=== PATIENT | female | born 1990 | race Two or more races ===

== ENCOUNTER 2016-12-22 21:54 | Emergency (ER) | payer MEDICAID ==
[~2016-12-22] VITALS: Ht 157.5 cm; Wt 64.4 kg
[~2016-12-22 21:54] MED LIST: IBUP200C8 PO
[2016-12-22] MEDS ORDERED: LORazepam 0.5MG TABLET ONE (22:44)
[2016-12-22] MEDS ORDERED: LORazepam 1MG TABLET PO ONE (23:00)
[2016-12-23 00:38] VITALS: BP 114/77
== END 2016-12-23 00:39 | disposition home or self-care (01) ==
LOC: ED 23:03
DX: J20.8 Acute bronchitis due to other specified organisms (principal); B96.89 Other specified bacterial agents as the cause of diseases classified elsewhere
CPT/HCPCS: 71020; 93005; 93970; 99284

== ENCOUNTER 2017-07-22 20:21 | Emergency (ER) | payer SELFPAY ==
[~2017-07-22] VITALS: Ht 157.5 cm; Wt 62.9 kg
[2017-07-22 20:25] VITALS: BP 113/73
[2017-07-22 21:31] LABS: BASOPHILS # (AUTO) 0.02 x10^3/uL (0-0.1); BASOPHILS % (AUTO) 0 % (0-1); EOSINOPHILS # (AUTO) 0.05 x10^3/uL (0-0.4); EOSINOPHILS % (AUTO) 1 % (1-7); LYMPHOCYTES # (AUTO) 2.06 x10^3/uL (1-3.4); LYMPHOCYTES % (AUTO) 33 % (22-44); MD NO; MEAN CORPUSCULAR HEMOGLOBIN 30.5 pg (27.0-34.8); MEAN CORPUSCULAR HGB CONC 33.7 g/dL (32.4-35.8); MEAN CORPUSCULAR VOLUME 90.6 fL (80-100); MEAN PLATELET VOLUME 8.6 fL (7.4-10.4); MONOCYTES # (AUTO) 0.38 x10^3/uL (0.2-0.8); MONOCYTES % (AUTO) 6 % (2-9); NEUTROPHILS # (AUTO) 3.83 x10^3/uL (1.8-6.8); NEUTROPHILS % (AUTO) 60 % (42-75); PLATELET COUNT 229 x10^3/uL (130-400); RED BLOOD COUNT 3.99 x10^6/uL (3.82-5.3); RED CELL DISTRIBUTION WIDTH 13.1 % (9.6-15.2)
[2017-07-22 21:37] LABS: ALANINE AMINOTRANSFERASE 22 U/L (12-78); ALBUMIN 3.5 g/dL (3.4-5.0); ANION GAP 9 mmol/L (5-15); CALCIUM 8.6 mg/dL (8.5-10.1); CHLORIDE 107 mmol/L (98-107); CREATININE 0.72 mg/dL (0.55-1.02)
[2017-07-22 21:39] LABS: ALKALINE PHOSPHATASE 59 U/L (45-117); BILIRUBIN,TOTAL 0.2 mg/dL (0.2-1.0); TOTAL PROTEIN 6.9 g/dL (6.4-8.2)
[2017-07-22 21:40] LABS: HCG UR SG 1.027 (1.003-1.030); MICROSCOPIC NOT IND
[2017-07-22 21:44] LABS: CULTURE INDICATED? NO
== END 2017-07-22 22:22 | disposition home or self-care (01) ==
LOC: ED 20:47
DX: R10.84 Generalized abdominal pain (principal)
CPT/HCPCS: 36415; 80053; 81003; 81025; 83690; 85025; 99284

== ENCOUNTER 2018-01-09 17:24 | Emergency (ER) | payer SELFPAY ==
[~2018-01-09] VITALS: Ht 157.5 cm; Wt 60.3 kg
[2018-01-09 17:30] VITALS: BP 147/69
[2018-01-09] MEDS ORDERED: ONDANSETRON ODT 4 MG ONE (17:42)
[2018-01-09 17:53] LABS: BASOPHILS # (AUTO) 0.01 x10^3/uL (0-0.1); BASOPHILS % (AUTO) 0 % (0-1); EOSINOPHILS # (AUTO) 0.03 x10^3/uL (0-0.4); EOSINOPHILS % (AUTO) 0 % (1-7); LYMPHOCYTES # (AUTO) 1.47 x10^3/uL (1-3.4); LYMPHOCYTES % (AUTO) 15 % (22-44); MD NO; MEAN CORPUSCULAR HEMOGLOBIN 31.1 pg (27.0-34.8); MEAN CORPUSCULAR HGB CONC 34.1 g/dL (32.4-35.8); MEAN CORPUSCULAR VOLUME 91.1 fL (80-100); MEAN PLATELET VOLUME 8.5 fL (7.4-10.4); MONOCYTES # (AUTO) 0.55 x10^3/uL (0.2-0.8); MONOCYTES % (AUTO) 6 % (2-9); NEUTROPHILS # (AUTO) 7.74 x10^3/uL (1.8-6.8); NEUTROPHILS % (AUTO) 79 % (42-75); PLATELET COUNT 263 x10^3/uL (130-400); RED BLOOD COUNT 4.78 x10^6/uL (3.82-5.3); RED CELL DISTRIBUTION WIDTH 13.7 % (9.6-15.2)
[2018-01-09] MEDS ORDERED: ONDANSETRON ODT 4 MG PO ONE (18:00)
[2018-01-09 18:02] LABS: ALANINE AMINOTRANSFERASE 25 U/L (12-78); ALBUMIN 4.2 g/dL (3.4-5.0); ANION GAP 9 mmol/L (5-15); CALCIUM 8.8 mg/dL (8.5-10.1); CHLORIDE 108 mmol/L (98-107); CREATININE 0.64 mg/dL (0.55-1.02)
[2018-01-09 18:07] LABS: ALKALINE PHOSPHATASE 52 U/L (45-117); BILIRUBIN,TOTAL 0.5 mg/dL (0.2-1.0); TOTAL PROTEIN 8.1 g/dL (6.4-8.2)
[2018-01-09] MEDS ORDERED: SODIUM CHLORIDE 0.9% 1,000 ML IV ONE (18:22)
[2018-01-09] MEDS ORDERED: HYDROmorphone 2 MG/ML, 1ML ONE (18:29)
[2018-01-09] MEDS ORDERED: HYDROmorphone 2 MG/ML, 1ML IVPush PRN (18:30)
[2018-01-09] MEDS ORDERED: SODIUM CHLORIDE FLUSH 10ML SYR IVF ONE (18:30)
[2018-01-09] MEDS ORDERED: SODIUM CHLORIDE 0.9% 1,000ML IVBOLUS ONE (18:30)
[2018-01-09 18:52] LABS: MICROSCOPIC AUTO
[2018-01-09] MEDS ORDERED: OMNIPAQUE 350 MG/ML, 100ML BOTTLE ONE (18:56)
[2018-01-09 18:59] LABS: CULTURE INDICATED? YES
== END 2018-01-09 20:27 | disposition home or self-care (01) ==
LOC: ED 20:15
DX: K52.9 Noninfective gastroenteritis and colitis, unspecified (principal); G43.909 Migraine, unspecified, not intractable, without status migrainosus
CPT/HCPCS: 36415; 74021; 74177; 80053; 81001; 83690; 84703; 85025; 87086; 87147; 96361; 96374; 99285; J1170; J7030; Q0162; Q9967

== ENCOUNTER 2018-03-28 14:50 | Emergency (ER) | payer OTHER ==
[~2018-03-28] VITALS: Ht 157.5 cm; Wt 61.2 kg
--- NOTE | 2018-03-28 15:20 | NUR ---
pt presented to ed with a headache x 2 days. pt with hx: migraines. assessment completed. call light in reach. at bedside.
[2018-03-28] MEDS ORDERED: KETOROLAC 30 MG/1 ML IVPush ONE (15:30)
[2018-03-28] MEDS ORDERED: PROCHLORPERAZINE 5 MG/ML, 2ML IVPush ONE (15:30)
[2018-03-28] MEDS ORDERED: DIPHENHYDRAMINE 50 MG/ML, 1ML IVPush ONE (15:30)
[2018-03-28] MEDS ORDERED: DIPHENHYDRAMINE 50 MG/ML, 1ML ONE (15:39)
[2018-03-28] MEDS ORDERED: PROCHLORPERAZINE 5 MG/ML, 2ML ONE (15:39)
[2018-03-28] MEDS ORDERED: KETOROLAC 30 MG/1 ML ONE (15:40)
[2018-03-28 16:16] LABS: HCG UR SG 1.022 (1.003-1.030); MICROSCOPIC AUTO
[2018-03-28 16:17] LABS: CULTURE INDICATED? YES
[2018-03-28 16:46] VITALS: BP 98/62
== END 2018-03-28 16:49 | disposition home or self-care (01) ==
LOC: ED 15:35
DX: G43.909 Migraine, unspecified, not intractable, without status migrainosus (principal)
CPT/HCPCS: 81001; 81025; 87086; 96374; 96375; 99283; J0780; J1200; J1885

== ENCOUNTER 2018-10-26 20:02 | Emergency (ER) | payer MEDICAID ==
[~2018-10-26] VITALS: Ht 157.5 cm; Wt 62.1 kg
[2018-10-26 23:38] VITALS: BP 104/68
== END 2018-10-26 23:40 | disposition home or self-care (01) ==
LOC: ED 20:49
DX: M25.552 Pain in left hip (principal); G43.909 Migraine, unspecified, not intractable, without status migrainosus; F17.200 Nicotine dependence, unspecified, uncomplicated; Z96.642 Presence of left artificial hip joint; Z87.39 Personal history of other diseases of the musculoskeletal system and connective tissue
CPT/HCPCS: 36415; 73502; 80053; 81003; 81025; 85025; 96372; 99284; J1885

== ENCOUNTER 2019-02-11 07:46 | Emergency (ER) | payer MEDICAID ==
[~2019-02-11] VITALS: Ht 157.5 cm; Wt 60.0 kg
--- NOTE | 2019-02-11 08:50 | NUR ---
pt to room 26 from lobby at this time.
--- NOTE | 2019-02-11 08:57 | NUR ---
pt presents to ED with c/o n/v/d and reflux starting yesterday. pt a&ox4, resps even and unlabored. no vomiting at this time. pt placed in gown, all monitors in place. pt given blanket and emesis bag. call light in reach. awaiting MD and orders at this time.
--- NOTE | 2019-02-11 09:25 | NUR ---
MED STUDENT AT BEDSIDE.
[2019-02-11] MEDS ORDERED: SODIUM CHLORIDE 0.9% 1,000 ML IV ONE (09:46)
--- NOTE | 2019-02-11 09:51 | NUR ---
report from KAREY Whitman. assumed care of pt at this time.
--- NOTE | 2019-02-11 09:52 | NUR ---
REPORT GIVEN TO KAREY MYERS WHO IS TO ASSUME CARE AT THIS TIME.
[2019-02-11] MEDS ORDERED: SODIUM CHLORIDE FLUSH 10ML SYR IVF ONE (10:00)
[2019-02-11] MEDS ORDERED: PANTOPRAZOLE 40 MG IV IV ONE (10:00)
[2019-02-11] MEDS ORDERED: SODIUM CHLORIDE 0.9% 1,000ML IVBOLUS ONE (10:00)
--- NOTE | 2019-02-11 10:18 | NUR ---
pt resting in room. vss. piv established and labs drawn. pt up self to rr to provide clean catch ua sample. ua and blood sent to lab. no needs expressed. call light within reach. awaiting resutls.
[2019-02-11] MEDS ORDERED: PANTOPRAZOLE 40 MG IV ONE (10:25)
--- NOTE | 2019-02-11 10:28 | NUR ---
pt medicated per mar. vss.
--- NOTE | 2019-02-11 10:29 | NUR ---
pt to us at this time.
[2019-02-11 10:31] LABS: BASOPHILS # (AUTO) 0.03 x10^3/uL (0-0.1); BASOPHILS % (AUTO) 0 % (0-1); EOSINOPHILS # (AUTO) 0.01 x10^3/uL (0-0.4); EOSINOPHILS % (AUTO) 0 % (1-7); LYMPHOCYTES # (AUTO) 1.46 x10^3/uL (1-3.4); LYMPHOCYTES % (AUTO) 17 % (22-44); MD NO; MEAN CORPUSCULAR HEMOGLOBIN 30.6 pg (27.0-34.8); MEAN CORPUSCULAR HGB CONC 33.3 g/dL (32.4-35.8); MEAN CORPUSCULAR VOLUME 91.9 fL (80-100); MEAN PLATELET VOLUME 8.1 fL (7.4-10.4); MONOCYTES # (AUTO) 0.29 x10^3/uL (0.2-0.8); MONOCYTES % (AUTO) 3 % (2-9); NEUTROPHILS # (AUTO) 7.03 x10^3/uL (1.8-6.8); NEUTROPHILS % (AUTO) 80 % (42-75); PLATELET COUNT 305 x10^3/uL (130-400); RED BLOOD COUNT 4.55 x10^6/uL (3.82-5.3); RED CELL DISTRIBUTION WIDTH 12.9 % (9.6-15.2)
[2019-02-11 10:43] LABS: ALBUMIN 4.1 g/dL (3.4-5.0); ANION GAP 7 mmol/L (5-15); CALCIUM 8.9 mg/dL (8.5-10.1); CHLORIDE 106 mmol/L (98-107)
[2019-02-11 10:45] LABS: MICROSCOPIC AUTO
[2019-02-11 10:49] LABS: ALANINE AMINOTRANSFERASE 48 U/L (12-78); ALKALINE PHOSPHATASE 61 U/L (45-117); BILIRUBIN,TOTAL 0.4 mg/dL (0.2-1.0); CREATININE 0.61 mg/dL (0.55-1.02)
[2019-02-11 10:49] LABS: CULTURE INDICATED? NO
--- NOTE | 2019-02-11 10:57 | NUR ---
pt back from us. vss. no needs expressed. call light within reach. awaiting results.
[2019-02-11] MEDS ORDERED: MAALOX/HYOSCYAMINE/LIDOCAINE 45 ML BTL ONE (11:19)
--- NOTE | 2019-02-11 11:23 | NUR ---
pt resting in room. vss. pt medicated per mar. no needs expressed. call light within reach. all results back. chart up for recheck.
[2019-02-11] MEDS ORDERED: MAALOX/HYOSCYAMINE/LIDOCAINE 45 ML BTL PO ONE (11:30)
--- NOTE | 2019-02-11 11:53 | NUR ---
pt resting in room. vss. pt reports decrease in nausea. no needs expressed. call light within reach. all results back. chart up for recheck.
[2019-02-11 12:25] VITALS: BP 95/62
== END 2019-02-11 12:35 | disposition home or self-care (01) ==
LOC: ED 10:59
DX: K29.00 Acute gastritis without bleeding (principal); F17.210 Nicotine dependence, cigarettes, uncomplicated
CPT/HCPCS: 36415; 76700; 80053; 81001; 83690; 84703; 85025; 93005; 96361; 96374; 99284; C9113; J7030

== ENCOUNTER 2019-11-05 09:12 | Emergency (ER) | payer MEDICAID ==
[~2019-11-05] VITALS: Ht 157.5 cm; Wt 58.9 kg
[2019-11-05] MEDS ORDERED: LORazepam 1MG TABLET ONE (10:21)
[2019-11-05] MEDS ORDERED: LORazepam 1MG TABLET PO ONE (10:30)
--- NOTE | 2019-11-05 10:34 | NUR ---
pt presents to ED with intermittent headache, sob, and chest tightness x 1 week. pt reports she does not have any chest tightness at this time. pt seen and examined by jono Michelle ordered and administered per emar. pt reports numerous stressors at home, severe anxiety regarding family stressors and pandemic concerns. pt denies SI. pt given extensive verbal support by this RN and MONIK Alberts. pt attached to all monitors, NSR on monitoring and evaluation advisor with no ectopy. blanket provided. call light in reach.
--- NOTE | 2019-11-05 11:56 | NUR ---
pt counseled again by MONIK Alberts regarding outpatient mental health resources for anxiety, pt agreeable to discharge plan. pt to be discharged.
[2019-11-05 12:30] VITALS: BP 99/70
--- NOTE | 2019-11-05 12:31 | NUR ---
pt reports anxiety resolved, pt is a&o, resps even and unlabored, hoang. pt given dc instructions and script. pt educated not to drive d/t med given, friend is driving her home. pt given extensive mental health outpatient resources. pt given dc instructions and script, educated regarding rx for ativan. pt ambulatory to dc desk with steady gait, all questions answered.
== END 2019-11-05 12:31 | disposition home or self-care (01) ==
LOC: ED 10:56
DX: F32.9 Major depressive disorder, single episode, unspecified (principal); Z20.828 Contact with and (suspected) exposure to other viral communicable diseases; R06.02 Shortness of breath; R07.89 Other chest pain; F43.0 Acute stress reaction; G43.909 Migraine, unspecified, not intractable, without status migrainosus; F17.200 Nicotine dependence, unspecified, uncomplicated
CPT/HCPCS: 36415; 87635; 93005; 99284

== ENCOUNTER 2020-11-05 20:10 | Emergency (ER) | payer MEDICAID ==
[~2020-11-05] VITALS: Ht 157.5 cm; Wt 69.4 kg
[2020-11-05] MEDS ORDERED: KETOROLAC 30 MG/1 ML IVPush ONE (20:30)
[2020-11-05] MEDS ORDERED: SODIUM CHLORIDE 0.9% 1,000ML IVBOLUS ONE (20:30)
[2020-11-05] MEDS ORDERED: ONDANSETRON 2MG/ML, 2ML IVPush ONE (20:30)
[2020-11-05] MEDS ORDERED: SODIUM CHLORIDE FLUSH 10ML SYR IVF ONE (20:30)
[2020-11-05 21:21] LABS: BASOPHILS % (AUTO) 1 % (0-1); EOSINOPHILS % (AUTO) 1 % (1-7); LYMPHOCYTES % (AUTO) 35 % (22-44); MEAN CORPUSCULAR HEMOGLOBIN 30.8 pg (27.0-34.8); MEAN CORPUSCULAR HGB CONC 34.5 g/dL (32.4-35.8); MEAN PLATELET VOLUME 8.1 fL (7.4-10.4); MONOCYTES % (AUTO) 8 % (2-9); NEUTROPHILS % (AUTO) 56 % (42-75); PLATELET COUNT 286 x10^3/uL (130-400); RED BLOOD COUNT 4.12 x10^6/uL (3.82-5.3); RED CELL DISTRIBUTION WIDTH 13.6 % (9.6-15.2)
[2020-11-05 21:31] LABS: ALBUMIN 3.2 g/dL (3.4-5.0); ANION GAP 5 mmol/L (5-15); CALCIUM 8.6 mg/dL (8.5-10.1); CHLORIDE 106 mmol/L (98-107)
[2020-11-05 21:35] LABS: ALANINE AMINOTRANSFERASE 89 U/L (12-78); ALKALINE PHOSPHATASE 103 U/L (45-117); BILIRUBIN,TOTAL 0.1 mg/dL (0.2-1.0); CREATININE 0.62 mg/dL (0.55-1.02); TOTAL PROTEIN 7.2 g/dL (6.4-8.2)
--- NOTE | 2020-11-05 22:12 | NUR ---
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
--- NOTE | 2020-11-05 22:35 | NUR ---
COVID+ TODAY, WORSENING BOGGS, SINUS PRESSURE, PT GOT BOTH PFIZER VACCINES LAST DOSE WAS 10/10/20 NO COUGH/SOB PIV PLACED
[2020-11-05] MEDS ORDERED: KETOROLAC 30 MG/1 ML ONE (22:39)
[2020-11-05] MEDS ORDERED: ONDANSETRON 2MG/ML, 2ML ONE (22:40)
--- NOTE | 2020-11-05 22:40 | NUR ---
MEDICATED PER EMAR FOR PAIN/NAUSEA RATED AT 6/10
[2020-11-05 23:12] VITALS: BP 107/58
--- NOTE | 2020-11-05 23:12 | NUR ---
1l ns complete, pain/pain completely resolved. discharged home after review of quarantine/sxs to watch for
== END 2020-11-05 23:14 | disposition home or self-care (01) ==
LOC: ED 20:40
DX: U07.1 COVID-19 (principal); R50.9 Fever, unspecified; B34.9 Viral infection, unspecified; J00 Acute nasopharyngitis [common cold]; G43.909 Migraine, unspecified, not intractable, without status migrainosus; F17.210 Nicotine dependence, cigarettes, uncomplicated
CPT/HCPCS: 36415; 80053; 85025; 96374; 96375; 99284; J1885; J2405; J7030; 96361